=== PATIENT | male | born 1985 | race Caucasian/White ===

== ENCOUNTER 2017-03-24 02:13 | Emergency (ER) | payer OTHER ==
[~2017-03-24] VITALS: Ht 177.8 cm; Wt 105.2 kg
[2017-03-24] MEDS ORDERED: TETRACAINE HCL 0.5% OPTH SOLN 4 ML BTL OP ONE (02:15)
[2017-03-24] MEDS ORDERED: EYE IRRIGATION (OPTH) 120 ML BTL OP ONE (02:15)
[2017-03-24] MEDS ORDERED: FLUORESCEIN SOD(OPTH) 1 MG STRP OP ONE (02:15)
[2017-03-24] MEDS ORDERED: TETRACAINE HCL 0.5% OPTH SOLN 4 ML BTL ONE (02:21)
[2017-03-24] MEDS ORDERED: EYE IRRIGATION (OPTH) 120 ML BTL ONE (02:21)
== END 2017-03-24 02:56 | disposition home or self-care (01) ==
LOC: ER 02:13
DX: Z77.098 Contact with and (suspected) exposure to other hazardous, chiefly nonmedicinal, chemicals (principal); T26.62XA Corrosion of cornea and conjunctival sac, left eye, initial encounter; Y99.0 Civilian activity done for income or pay
CPT/HCPCS: 99282